=== PATIENT | female | born 1955 | race African-American/Black ===

== ENCOUNTER → 2020-11-28 | Outpatient (CLI) | payer OTHER ==
[~2020-11-28] MED LIST: BYSTOLIC 5 MG5 M1 PO; EXCEDRIN MIGRA1 EAC1 PO; FLEXERIL PO; HYDROCHLOROTHIA25 M1; HYDROCHLOROTHIA25 M2 PO; HYDROCODON-ACE1 EACH PO; HYZAAR 50-12.51 TAB PO; LOPRESSOR50 PO; MAXALT MLT10 MG; NORCO 5-325 TA1 EACH PO; ZOFRAN4 MG PO
== END ==
LOC: BC 08:20
PROVIDERS: ATTEND Family Medicine
DX: Z12.31 Encounter for screening mammogram for malignant neoplasm of breast (principal); N63.10 Unspecified lump in the right breast, unspecified quadrant; R59.0 Localized enlarged lymph nodes

== ENCOUNTER → 2020-12-01 | Outpatient (CLI) | payer OTHER | LOC: BC 12:52 | PROVIDERS: ATTEND Family Medicine | DX: R92.0 Mammographic microcalcification found on diagnostic imaging of breast (principal); N63.10 Unspecified lump in the right breast, unspecified quadrant ==

== ENCOUNTER → 2021-01-10 | Outpatient (CLI) | payer OTHER ==
--- NOTE | 2021-01-19 13:12 | PATH ---
[facility] [place] [address] PATHOLOGY RPT PROCEDURE Name: TISHA LORENZO Room #: REG [facility] M..#: [id number] Admission: 01/10/21 Date of : 53 Discharge: Report #: [id number] Path Case #: [id number] [facility] Accession Number: [id number] . 01 Material submitted: . breast - RIGHT BREAST MICROCALICIFICATIONS. Modifiers: right . 02 Diagnosis: Right breast, central, microcalcification, stereotactic guided needle biopsies: - Ductal carcinoma in situ, solid and cribriform type, nuclear grade II. - Negative for invasive malignancy. . CANCER CASE SUMMARY . Protocol Posting Date: July 2020 . CASE SUMMARY: (DCIS OF THE BREAST: Biopsy) This template is recommended for reporting biopsy specimens, but is not required for accreditation purposes. . SPECIMEN . Procedure ___ Needle biopsy . Specimen Laterality ___ Right . TUMOR . +Tumor Site ___ Central . Histologic Type ___ Ductal carcinoma in situ (DCIS) . +Architectural Patterns ___ Cribriform ___ Solid . Nuclear Grade ___ Grade II (intermediate) . Necrosis ___ Present, central (expansive "comedo" necrosis) Microcalcifications ___ Present in ductal carcinoma in situ [facility] [address] [place] [address] PATHOLOGY RPT PROCEDURE Name: TISHA LORENZO Room #: REG CL M..#: [id number] Admission: 01/10/21 Date of : 53 Discharge: Report #: [id number] Path Case #: [id number] ADDITIONAL FINDINGS . +Additional Findings: None . SPECIAL STUDIES . +Breast Biomarker Studies: Pending studies on A1 . (ANK:pit:db; 01/11/2021) . [facility] 01/11/2021 1446 Local . 02 Comment: Vicky Kennedy , breast coordinator, notified by Dr. Robbins on 01/11/2021 at 1540 PM This case has been co-reviewed with Dr. Rohit Pinon who concurs with the given diagnosis. Breast prognostic markers are being sent on block A1 to [facility]. Once those results are available an addendum will follow. (ANK:marta; 01/11/2021) . 02 Addendum: . Special studies report received from [facility], [address] [place] [address], [address], [place], [address], on case [id number], labeled with their number [id number], dated 01/17/2021. . Breast Predictive/Prognostic Marker Analysis . . Specimen Site: Rt Breast,DCIS (Biopsy) Specimen ID #: [id number] . ER (Estrogen Receptor) Negative Percent: 0.00 Analysis: Manual Staining Intensity: Not Applicable Internal Control: Present and Positive Comments: The ER stained slide was also reviewed by Dr. Keenan Uribe who agrees with the above interpretation. . WY (Progesterone Receptor) Negative Percent: 0.00 Analysis: Manual Staining Intensity: Not Applicable Internal Control: Present and Positive [address] [address] PATHOLOGY RPT PROCEDURE Name: JUANTISHA JEAN [id number]: 01/10/[facility] Date of : 53 Discharge: Report #: [id number] Path Case #: [id number] . Time to Fixation (Cold Ischemic Time): 11 minutes Duration of Fixation: 9 hours Type of Fixative: 10% Neutral Buffered Formalin . at [facility]. Kassandra Kahn M.D. Pathologist . Methodology: A rabbit monoclonal antibody (clone SP1) that recognized the Estrogen Receptor is used to perform immunohistochemistry on routinely fixed (formalin) paraffin embedded tissue on the [employer]. The specimen is processed using a secondary antibody-HRP conjugate detection system. The percentage of stained tumor nuclei is determined either manually or by image analysis. This test is intended for in vitro diagnostic use. This test is used for clinical purposes. . A rabbit monoclonal antibody (clone 1E2) that recognized the Progesterone Receptor is used to perform immunohistochemistry on routinely fixed (formalin) paraffin embedded tissue on the [employer]. The specimen is processed using a secondary antibody-HRP conjugate detection system. The percentage of stained tumor nuclei is determined either manually or by image analysis. This test is intended for in vitro diagnostic use. This test is used for clinical purposes. . Intended Use: This antibody is intended for in vitro diagnostic (IVD) use. Estrogen Receptor (ER) (SP1) is a rabbit monoclonal antibody (IgG) that is intended for the qualitative detection of estrogen receptor (ER) antigen in sections of formalin-fixed, paraffin-embedded tissue. ER is a rabbit monoclonal antibody that recognizes human estrogen receptor alpha. . This antibody is intended for in vitro diagnostic (IVD) use. Progesterone Receptor (WY) (1E2) is a rabbit monoclonal antibody (IgG) that is intended for the qualitative detection of progesterone receptor (WY) antigen in sections of formalin fixed, paraffin embedded tissue. WY is a rabbit monoclonal antibody that recognizes the A and B forms of the human progesterone receptor. . Disclaimer(s): This assay has not been validated on decalcified tissues. Results should be interpreted with caution if this specimen was decalcified given the likelihood of false negativity on decalcified specimens. . Any image(s) that accompany this report is/are a primary care sales representative image(s) only and should not be used to render a diagnosis. [address] [address] PATHOLOGY RPT PROCEDURE Name: JUANTISHA RIAZ Room #: REG CL Jimmy.Dav.#: [id number] Admission: 01/10/21 Date of : 53 Discharge: Report #: [id number] Path Case #: [id number] . This interpretation is contingent on the specimen and the clinical information received. . For any special tests/stains performed, known positive cells or tissues are tested with each marker and examined to ensure positivity. Positive and negative internal controls, if present, react appropriately. . This analysis is an adjunct to the evaluation of the referring physician and does not represent a final diagnosis. . The immunohistochemistry tests performed at [facility]. were validated on tissue fixed in 10% neutral buffered formalin. The performance characteristics of the tests performed on tissue processed in other fixatives is not known. . ER/WY ASCO/CAP guidelines require fixation in neutral buffered formalin for a minimum of 6 and a maximum of 72 hours. Fixation times less than 6 hours may not adequately preserve cell proteins. Fixation times longer than 72 hours may cause excess cross-linking of proteins reducing the antigen available for staining. Either scenario can cause reduced staining; hence false negative results are possible and should be considered for these situations. The time from biopsy/excision to fixation in formalin (cold ischemic time) must be less than 1 hour. Time to fixation (cold ischemic time) greater than 1 hour should be interpreted with caution. REF: Jimmy Garcia, et al. [place] Society of Clinical Oncology/College of [place] Pathologists Guideline Recommendations for Immunohistochemical Testing of Estrogen and Progesterone Receptors in Breast Cancer. J Clin Oncol. 2009July 25; 28(16): 5317-4669. . ER/PgR testing at [facility]. is performed in compliance with the ASCO/CAP Clinical Practice Guidelines. If the result for ER is less than 1% it is reported as Negative; if the ER result is 1-10% it is reported as Low Positive; if the ER result is greater than 10% it is reported as Positive. If the result for PgR is less than 1% it is reported as Negative; if the PgR result is equal to or greater than 1%, it is reported as Positive. . REFERENCE: Nicki LOW, Jose CERVANTES, Mychal Marquez,et al. Estrogen and progesterone receptor testing in breast cancer. ASCO/CAP guideline update. Arch Pathol Lab Med. 2020;144:545-563. . Performing Labs: This Test was performed at [facility]. at [address] [place] [address], [place], [address]. . [facility] is a business unit of [facility]. a wholly-owned subsidiary of [facility] of [address] [address] PATHOLOGY RPT PROCEDURE Name: TISHA LORENZO Room #: REG [facility]..#: [id number] Admission: 01/10/21 Date of : 53 Discharge: Report #: [id number] Path Case #: [id number] [employer]. . A complete copy of the report is on file. . Professional and Technical services performed by [facility]. at [address] [place] [address], [place] [address]. . (MLK:amnanette 01/17/2021) . [facility]/01/17/2021 Addendum Electronically Signed by Fern Carreon MD, Pathologist . 02 Electronically signed: . Jennie Robbins MD, Pathologist NPI- [id number] . 01 Gross description: . The specimen is received in formalin, labeled "Tisha Lorenzo, right", additionally the requisition designates the specimen as "right central". The specimen consists of multiple fatty cylindrical needle core biopsies (ranging in length from 1.2 cm to 3.9 cm and ranging in diameter from 0.3 cm to 0.6 cm) which are submitted entirely in A2-A4. A white cassette containing 3 additional fatty cylindrical tissues is received in the same container. These tissues are submitted entirely in A1. The specimen is submitted entirely in A1-A4. The cold ischemic time is 11 minutes. The total time in formalin is 9 hours.([facility]; 01/10/2021) DKA/DKA 01/10/2021 1729 Local . 02 Pathologist provided ICD-10: D05.11 . 02 CPT . 464696 Specimen Comment: A courtesy copy of this report has been sent to [phone] Specimen Comment: Report sent to Specimen Comment: A duplicate report has been generated due to demographic updates. Performed at: [address] [facility] [address], [place] [id number] MD Rohit Pinon MD Phone: [phone] Performed at: [address] [facility] [id number] MD Ingrid Hassan MD Phone: [phone]
== END | disposition home or self-care (01) ==
LOC: RAD 12-22 10:04
PROVIDERS: ATTEND Family Medicine
DX: R92.1 Mammographic calcification found on diagnostic imaging of breast (principal); D05.11 Intraductal carcinoma in situ of right breast; I10 Essential (primary) hypertension; Z98.890 Other specified postprocedural states; Z79.899 Other long term (current) drug therapy; Z88.8 Allergy status to other drugs, medicaments and biological substances